=== PATIENT | male | born 1995 | race Caucasian/White ===

== ENCOUNTER 2023-05-29 08:17 | Outpatient (CLI) | payer OTHER ==
[2023-05-29 12:37] LABS: THYROID STIMULATING HORMONE 1.4 uIU/mL (0.34-5.60)
[2023-05-29 12:42] LABS: PROLACTIN 9.94 ng/mL
== END 2023-05-29 08:18 | disposition home or self-care (01) ==
LOC: LAB.N 08:17
PROVIDERS: ATTEND Urology
DX: R39.89 Other symptoms and signs involving the genitourinary system (principal)
CPT/HCPCS: 36415; 82670; 83001; 83002; 84146; 84403; 84443